=== PATIENT | male | born 1945 | race Caucasian/White ===

== ENCOUNTER 2017-12-24 06:39 | Emergency (ER) | payer OTHER ==
[2017-12-24] MEDS ORDERED: Lidocaine 1% w/Epinephrine 1:100K 20 ML VIAL ONE (07:53)
--- NOTE | 2017-12-24 08:13 | CT ---
CT BRAIN PERFORMED WITHOUT CONTRAST ENHANCEMENT: HISTORY: Fall with laceration to faith. FINDINGS: The ventricular and cisternal system show mild age appropriate change. No signs of intracerebral hem orrhage or extraaxial fluid collections. There is opacification of the left mastoid air cells. The right mastoid air cells are poorly aerated, which is more of a developmental change. Minimal ethmoid air cell mucosal changes noted. No skull fracture. IMPRESSION: No acute intracranial abnormalities. POS: [facility]
--- NOTE | 2017-12-24 08:16 | RAD ---
RIGHT RIBS THREE VIEWS: History: Fall at home, pain along right ribs. FINDINGS: There is no evidence of pneumothorax and no fractures identified. IMPRESSION: No evidence of any acute fracture. POS: [facility]
[2017-12-24 08:23] LABS: Bilirubin Negative (Negative); Blood, Urine Negative (Negative); Clarity CLEAR (Clear); Glucose, Urine (Dipstick) Negative (Negative); Leukocyte Negative (Negative); Nitrite Negative (Negative); Protein, Urine (Dipstick) Negative (Neg-Trace); Urobilinogen 0.2 mg/dL (0.2-1.0); pH, Urine 5.5 (5.0-9.0)
[2017-12-24] MEDS ORDERED: HYDROcodone/Acetaminophen 5/325 mg Tablet ONE (09:03)
== END 2017-12-24 09:29 | disposition home or self-care (01) ==
LOC: ERS 06:39
DX: S01.81XA Laceration without foreign body of other part of head, initial encounter (principal); S20.211A Contusion of right front wall of thorax, initial encounter; E78.5 Hyperlipidemia, unspecified; I10 Essential (primary) hypertension; E11.9 Type 2 diabetes mellitus without complications; Z79.84 Long term (current) use of oral hypoglycemic drugs; Z79.899 Other long term (current) drug therapy; W18.30XA Fall on same level, unspecified, initial encounter
CPT/HCPCS: 12013; 70450; 81003; J2001

== ENCOUNTER 2018-06-08 09:23 | Emergency (ER) | payer OTHER | END 2018-06-08 12:00 | disposition home or self-care (01) | LOC: ERS 09:23 | DX: J06.9 Acute upper respiratory infection, unspecified (principal); H69.93 Unspecified Eustachian tube disorder, bilateral; I48.91 Unspecified atrial fibrillation; E11.9 Type 2 diabetes mellitus without complications; E78.5 Hyperlipidemia, unspecified; I10 Essential (primary) hypertension; G47.30 Sleep apnea, unspecified; F43.10 Post-traumatic stress disorder, unspecified; Z87.891 Personal history of nicotine dependence; Z79.84 Long term (current) use of oral hypoglycemic drugs; Z79.899 Other long term (current) drug therapy ==

== ENCOUNTER 2020-06-06 12:09 | Emergency (ER) | payer OTHER, MEDICARE ==
--- NOTE | 2020-06-06 13:01 | CT ---
Exam: CT brain PROVIDED CLINICAL HISTORY: Head injury COMPARISON: 12/24/2017 FINDINGS: The ventricular system is normal in size and morphology. No evidence for intracranial hemorrhage or mass effect. There is left frontal scalp swelling without evidence for skull fracture. There is partial opacification of the right mastoid air cells. IMPRESSION: No evidence for intracranial hemorrhage or mass effect.
--- NOTE | 2020-06-06 13:33 | RAD ---
EXAM: XR Shoulder Lt 3 View STANDARD PROVIDED CLINICAL HISTORY: Pain FINDINGS: There is no evidence for fracture or other acute osseous abnormality. Alignment appears anatomic. Ria nt spaces appear preserved. IMPRESSION: No evidence for an acute osseous abnormality. If there is persistent clinical concern, conservative m anagement and follow-up imaging advised.
--- NOTE | 2020-06-06 13:34 | RAD ---
EXAM: XR Wrist 3 Lt View STANDARD PROVIDED CLINICAL HISTORY: Pain status post injury COMPARISON: None FINDINGS: There is a nondisplaced fracture involving the radial styloid. No additional fracture is evident. Ali gnment appears anatomic. Joint spaces appear preserved. IMPRESSION: Nondisplaced radial styloid fracture.
--- NOTE | 2020-06-06 13:40 | RAD ---
XR Shoulder Rt 3 View STANDARD: 06/06/2020 12:48 PM CLINICAL INDICATION: History of right shoulder trauma after fall. COMPARISON: None. FINDINGS: Bones: No acute fracture. Glenohumeral joint: Normal alignment. 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 Visualized lung: Clear. Soft tissues: Within normal limits. IMPRESSION: No acute osseous abnormality.
[2020-06-06] MEDS ORDERED: Acetaminophen 500 MG TAB ONE (13:50)
[2020-06-06] MEDS ORDERED: Boostrix 0.5 ML (Tdap) VIAL ONE (15:05)
== END 2020-06-06 15:37 | disposition home or self-care (01) ==
LOC: ERS 12:09
DX: S52.515A Nondisplaced fracture of left radial styloid process, initial encounter for closed fracture (principal); S00.03XA Contusion of scalp, initial encounter; I48.91 Unspecified atrial fibrillation; E11.9 Type 2 diabetes mellitus without complications; E78.5 Hyperlipidemia, unspecified; E78.00 Pure hypercholesterolemia, unspecified; I10 Essential (primary) hypertension; G47.30 Sleep apnea, unspecified; Z87.891 Personal history of nicotine dependence; Z79.899 Other long term (current) drug therapy; W19.XXXA Unspecified fall, initial encounter
CPT/HCPCS: 29125; 70450; 90471; 90715; 93005

== ENCOUNTER 2021-10-20 17:06 | Emergency (ER) | payer OTHER, MEDICARE | END 2021-10-20 19:52 | disposition home or self-care (01) | LOC: ERS 17:06 | DX: L03.032 Cellulitis of left toe (principal); E11.9 Type 2 diabetes mellitus without complications; E78.5 Hyperlipidemia, unspecified; E78.00 Pure hypercholesterolemia, unspecified; I10 Essential (primary) hypertension; G47.30 Sleep apnea, unspecified; I48.91 Unspecified atrial fibrillation; Z87.891 Personal history of nicotine dependence | CPT/HCPCS: 36416 ==